=== PATIENT | female | born 1980 | race Two or more races ===

== ENCOUNTER 2017-03-03 19:43 | Inpatient (IN) | payer OTHER ==
[~2017-03-03] VITALS: Ht 160 cm; Wt 70.4 kg
[2017-03-03 20:29] LABS: Basophils # (auto) 0 uL; Basophils % (auto) 0.2 % (0.0-2.0); Eosinophils # (auto) 0.2 uL; Eosinophils % (auto) 1.1 % (0.0-7.0); Hematocrit 36.8 % (36.0-46.0); Hemoglobin 12.3 g/dL (12.2-16.2); Lymphocytes # (auto) 1.8 uL; Lymphocytes % (auto) 10.6 % (10.0-50.0); Mean Corpuscular Hemoglobin 29.9 pg (28.0-32.0); Mean Corpuscular Hgb Conc. 33.5 g/dL (32.0-36.0); Mean Corpuscular Volume 89.5 fL (80.0-100.0); Mean Platelet Volume 8.8 fL (7.4-10.4); Monocytes # (auto) 0.6 uL; Monocytes % (auto) 3.4 % (0.0-12.0); Neutrophils % (auto) 84.7 % (37.0-80.0); Platelet Count (auto) 339 10^3/uL (140-450); Red Cell Distribution Width 13.1 % (11.6-16.0); White Blood Cell 16.5 10^3/uL (4.4-10.8)
[2017-03-03 20:36] LABS: Urine Bilirubin Negative (Negative); Urine Color Yellow (Yellow); Urine Glucose Normal (Normal); Urine Ketone Negative (Negative); Urine Mucus FEW (None Seen); Urine Nitrite Negative (Negative); Urine RBC 5 /hpf (0 - 4); Urine Squamous Epithelial Cell FEW /hpf (<5); Urine Urobilinogen Normal (Negative)
[2017-03-03 20:42] LABS: Urine Blood 1+ /uL (Negative)
[2017-03-03 20:45] LABS: Albumin 4.1 g/dL (3.4-5.0); BUN/Creatinine Ratio 18.3; Potassium 3.6 mmol/L (3.5-5.1)
[2017-03-03 20:49] LABS: INR 1.06 (0.9-1.15); Prothrombin Time 11.4 sec (9.37-12.3)
[2017-03-03 20:56] LABS: Bilirubin, Total 0.3 mg/dL (0.2-1.0); Total Protein 7.2 g/dL (6.4-8.2)
[2017-03-03] MEDS ORDERED: SUCCINYLCHOLINE CHLORIDE 20 MG/ML 10ML VIAL IV ONE (23:31)
[2017-03-03] MEDS ORDERED: fentaNYL CITRATE 100 MCG/2 ML VL ONE (23:36)
[2017-03-03] MEDS ORDERED: MEPERIDINE HCL (50 MG/ML) 1 ML VIAL ONE (23:36)
[2017-03-03] MEDS ORDERED: ROCURONIUM 10MG/ML 10ML VIAL IV ONE (23:36)
[2017-03-03] MEDS ORDERED: METOCLOPRAMIDE HCL 5MG/ml INJ 2ml VIAL ONE (23:36)
[2017-03-03] MEDS ORDERED: SODIUM CHLORIDE LOCK 20 ML ONE (23:36)
[2017-03-03] MEDS ORDERED: PROPOFOL 10 MG/ML 20 ML IV ONE (23:36)
[2017-03-03] MEDS ORDERED: MIDAZOLAM HCL 1MG/1ML-2 ML VIAL ONE (23:36)
[2017-03-04] MEDS ORDERED: METOCLOPRAMIDE HCL 5MG/ml INJ 2ml VIAL IV ONE
[2017-03-04] MEDS ORDERED: KETOROLAC TROMETH 30 MG/ML 1ML VIAL IV ONE
[2017-03-04] MEDS ORDERED: CLINDAMYCIN 600MG IV 50 ML IV ONE (00:02)
[2017-03-04] MEDS ORDERED: PROPOFOL 10 MG/ML 20 ML IV ONE (00:50)
[2017-03-04] MEDS ORDERED: KETOROLAC TROMETH 60MG/2ML VIAL IM ONE (01:01)
[2017-03-04] MEDS ORDERED: NEOSTIGMINE 1 MG/ML INJ (10mg/10ML VIAL) ONE (01:01)
[2017-03-04] MEDS ORDERED: GLYCOPYRROLATE 0.2 MG/ML 1ML VIAL ONE (01:01)
[2017-03-04] MEDS ORDERED: HYDROmorphone HCL 2 MG/ML VL IV PRN (02:00)
[2017-03-04] MEDS ORDERED: ONDANSETRON HCL 4 MG/2 ML VIAL IV PRN (02:00)
[2017-03-04] MEDS: HYDROmorphone HCL 2 MG/ML VL IV PRN ×2 (02:04→02:11)
[2017-03-04] MEDS ORDERED: NITROGLYCERIN 0.4 MG SL TAB SL PRN (02:15)
[2017-03-04] MEDS ORDERED: MORPHINE SULF INJ 2 MG/ML SYRINGE 1ML IV PRN (02:15)
[2017-03-04 02:50] VITALS: BP 96/48
[2017-03-04] MEDS: LACTATED RINGER'S 1,000 ML IV SCH ×2 (03:16→11:15)
[2017-03-04 05:00] VITALS: BP 94/44
[2017-03-04 05:58] LABS: Basophils # (auto) 0 uL; Basophils % (auto) 0.1 % (0.0-2.0); Eosinophils # (auto) 0 uL; Hematocrit 32.9 % (36.0-46.0); Hemoglobin 11.1 g/dL (12.2-16.2); Lymphocytes # (auto) 0.6 uL; Lymphocytes % (auto) 4.7 % (10.0-50.0); Mean Corpuscular Hgb Conc. 33.6 g/dL (32.0-36.0); Mean Corpuscular Volume 89.1 fL (80.0-100.0); Mean Platelet Volume 9.2 fL (7.4-10.4); Monocytes # (auto) 0.1 uL; Monocytes % (auto) 0.5 % (0.0-12.0); Neutrophils # (auto) 12.9 uL; Neutrophils % (auto) 94.7 % (37.0-80.0); Platelet Count (auto) 260 10^3/uL (140-450); Red Cell Distribution Width 12.9 % (11.6-16.0); White Blood Cell 13.7 10^3/uL (4.4-10.8)
[2017-03-04] MEDS: KETOROLAC TROMETH 30 MG/ML 1ML VIAL IV SCH ×2 (06:00→08:19)
[2017-03-04] MEDS ORDERED: MORPHINE SULF INJ 2 MG/ML SYRINGE 1ML IV ONE (06:00)
[2017-03-04 08:00] VITALS: BP 86/44
[2017-03-04 09:00] VITALS: BP 86/44
[2017-03-04] MEDS ORDERED: HYDROcodone-ACET 5/325MG TAB PO PRN ×2 (12:30)
[2017-03-04 12:59] VITALS: BP 99/56
[2017-03-04 15:28] VITALS: BP 99/56
== END 2017-03-04 16:20 | disposition home or self-care (01) | DRG 777 ==
LOC: ER 20:00 → OR 1 23:44 → CENTRAL 23:45
PROVIDERS: ADMIT Specialist; ATTEND Specialist
PROC: 10T24ZZ Resection of Products of Conception, Ectopic, Percutaneous Endoscopic Approach (ICD-10-PCS; principal; 2017-03-03)
PROC: 0UB54ZZ Excision of Right Fallopian Tube, Percutaneous Endoscopic Approach (ICD-10-PCS; 2017-03-03)
DX: O00.10 Tubal pregnancy without intrauterine pregnancy (principal); K66.1 Hemoperitoneum; O34.219 Maternal care for unspecified type scar from previous cesarean delivery; Z88.0 Allergy status to penicillin; Z82.49 Family history of ischemic heart disease and other diseases of the circulatory system; Z83.3 Family history of diabetes mellitus; Z3A.01 Less than 8 weeks gestation of pregnancy
CPT/HCPCS: 36415; 76801; 80053; 81001; 82150; 83690; 84702; 85025; 85610; 85730; 86850; 86900; 86901; 87081; J0330; J1885; J2250; J2704; J3490